=== PATIENT | male | born 1990 | race Caucasian/White ===

== ENCOUNTER 2022-11-14 05:18 | Emergency (ER) | payer BC ==
[2022-11-14 05:30] VITALS: RESP 18
[2022-11-14] MEDS ORDERED: ONDANSETRON 4 MG/2 ML VIAL IVP STA (06:17)
[2022-11-14] MEDS ORDERED: ORPHENADRINE 30 MG/ML 2 ML VIAL IVP STA (06:17)
[2022-11-14] MEDS ORDERED: KETOROLAC 15 MG/ML 1 ML VIAL IVP STA ×2 (06:17→08:18)
[2022-11-14] MEDS ORDERED: methylPREDNISolone SOD SUCCI 125 MG/2 ML VIAL IV STA (06:17)
[2022-11-14] MEDS ORDERED: HYDROmorphone 0.5 MG/0.5 ML SYRINGE IVP STA ×2 (06:17→08:18)
--- NOTE | 2022-11-14 07:44 | ED ---
Back Pain HPI - General Chief Complaint: Back Pain/Injury Stated Complaint: left hip and leg pain Time Seen by Provider: 11/14/22 05:42 Source: patient, family, RN notes reviewed Limitations: no limitations - History of Present Illness Initial Comments: 31-year-old male presents emergency Department chief complaint of low back pain, right leg pain. Patient states he had some problems last year similar to this had no imaging. CT of pain down his left leg at that time. Denies any bowel, bladder incontinence or retention. He states that he has no pain at rest pain with movement. Denies any weakness of his lower extremity he has no abdominal pain no dysuria no fevers. - Related Data Previous Rx's Medication Instructions Recorded Cyclobenzaprine [Flexeril] 10 mg PO TID PRN #15 tab 11/14/22 HYDROcodone/APAP 5-325MG [[place] 5] 1 each PO Q6HR PRN #12 tab 11/14/22 Ibuprofen [Motrin] 600 mg PO Q8HR PRN #30 tab 11/14/22 predniSONE 50 mg PO DAILY #5 tab 11/14/22 Allergies Allergy/AdvReac Type Severity Reaction Status Date / Time No Known Allergies Allergy Verified 11/14/22 05:30 Review of Systems ROS Statement: Those systems with pertinent positive or pertinent negative responses have been documented in the HPI. ROS Other: All systems not noted in ROS Statement are negative. Past Medical History Past Medical History: No Reported History History of Any Multi-Drug Resistant Organisms: None Reported Past Surgical History: No Surgical Hx Reported Past Psychological History: No Psychological Hx Reported Smoking Status: Vaper Past Alcohol Use History: Occasional Past Drug Use History: None Reported General Exam Limitations: no limitations General appearance: alert, in no apparent distress Head exam: Present: atraumatic, normocephalic, normal inspection Eye exam: Present: normal appearance, PERRL, EOMI. Absent: scleral icterus, conjunctival injection, periorbital swelling ENT exam: Present: normal exam, normal oropharynx, mucous membranes moist Neck exam: Present: normal inspection, full ROM. Absent: tenderness, meningismus, lymphadenopathy Respiratory exam: Present: normal lung sounds bilaterally. Absent: respiratory distress, wheezes, rales, rhonchi, stridor Cardiovascular Exam: Present: regular rate, normal rhythm, normal heart sounds. Absent: systolic murmur, diastolic murmur, rubs, gallop, clicks GI/Abdominal exam: Present: soft, normal bowel sounds. Absent: distended, tenderness, guarding, rebound, rigid Back exam: Present: full ROM, tenderness, paraspinal tenderness. Absent: vertebral tenderness Neurological exam: Present: alert, oriented X3, reflexes normal. Absent: motor sensory deficit Skin exam: Present: warm, dry, intact, normal color. Absent: rash Course Vital Signs 11/14/22 11/14/22 11/14/22 05:27 07:53 09:10 Temperature 98.0 F Pulse Rate 89 76 63 Respiratory 18 18 18 Rate Blood Pressure 129/79 142/86 142/98 O2 Sat by Pulse 97 98 97 Oximetry 11/14/22 09:54 Temperature 98.1 F Pulse Rate 71 Respiratory 18 Rate Blood Pressure 137/76 O2 Sat by Pulse 98 Oximetry Medical Decision Making - Medical Decision Making Was pt. sent in by a medical professional or institution (, PA, SAS ANALYST, urgent care, hospital, or fdc...) When possible be specific @ -No Did you speak to anyone other than the patient for history (EMS, parent, family, police, friend...)? What history was obtained from this source @ -No Did you review nursing and triage notes (agree or disagree)? Why? @ -I reviewed and agree with nursing and triage notes Were old charts reviewed (outside hosp., previous admission, EMS record, old EKG, old radiological studies, urgent care reports/EKG's, fdc records)? Report findings @ -No old charts were reviewed Differential Diagnosis (chest pain, altered mental status, abdominal pain women, abdominal pain men, vaginal bleeding, weakness, fever, dyspnea, syncope, headache, dizziness, GI bleed, back pain, seizure, CVA, palpatations, mental health, musculoskeletal)? @ -nDifferential Back Pain: Strain, zoster, cauda equina syndrome, epidural abscess, vertebral osteomyelitis, discitis, fracture, subluxation, disc herniation, DJD, spinal stenosis, dissection, AAA, pancreatitis, peptic ulcer disease, pyelonephritis, kidney stone, this is not meant to be an all-inclusive list.licable EKG interpreted by me (3pts min.). @ -None X-rays interpreted by me (1pt min.). @ -X-ray lumbar spine shows degenerative changes L4-L5 CT interpreted by me (1pt min.). @ -None done U/S interpreted by me (1pt. min.). @ -None done What testing was considered but not performed or refused? (CT, X-rays, U/S, labs)? Why? @ -Consider MRI though patient has no red flag symptoms and will follow palpation for MRI What meds were considered but not given or refused? Why? @ -None Did you discuss the management of the patient with other professionals (professionals i.e. , PA, SAS ANALYST, lab, RT, psych nurse, social worker aide, workforce investment act career manager, teacher, chief operating officer, case briefer)? Give summary @ -No Was smoking cessation discussed for >3mins.? @ -No Was critical care preformed (if so, how long)? @ -No Were there social determinants of health that impacted care today? How? (Homelessness, low income, unemployed, alcoholism, drug addiction, transportation, low edu. Level, literacy, decrease access to med. care, care home, rehab)? @ -No Was there de-escalation of care discussed even if they declined (Discuss DNR or withdrawal of care, Hospice)? DNR status @ -No What co-morbidities impacted this encounter? (DM, HTN, Smoking, COPD, CAD, Cancer, CVA, ARF, Chemo, Hep., AIDS, mental health diagnosis, sleep apnea, morbid obesity)? @ -None Was patient admitted / discharged? Hospital course, mention meds given and route, prescriptions, significant lab abnormalities, going to OR and other pertinent info. @ -Discharged patient's x-ray shows degenerative changes L4-L5 concerning for disc bulging or discrimination patient follow-up outpatient with orthopedics for MRI he has no red flag symptoms. Patient's pain was improved after treatment. Undiagnosed new problem with uncertain prognosis? @ -No Drug Therapy requiring intensive monitoring for toxicity (Heparin, Nitro, Insulin, Cardizem)? @ -No Were any procedures done? @ -No Diagnosis/symptom? @ -Lumbar radiculopathy, degenerative disc disease Acute, or Chronic, or Acute on Chronic? @ -Acute Uncomplicated (without systemic symptoms) or Complicated (systemic symptoms)? @ -Uncomplicated Side effects of treatment? @ -No Exacerbation, Progression, or Severe Exacerbation? @ -No Poses a threat to life or bodily function? How? (Chest pain, [place], [place], pneumonia, PE, COPD, DKA, ARF, appy, cholecystitis, CVA, Diverticulitis, Homicidal, Suicidal, threat to staff... and all critical care pts) @ -No Disposition Clinical Impression: Lumbar radiculopathy, Degeneration of intervertebral disc Disposition: HOME SELF-CARE Condition: Stable Instructions (If sedation given, give patient instructions): Acute Low Back Pain (ED) Additional Instructions: Please return to the Emergency Department if symptoms worsen or any other concerns. Prescriptions: Cyclobenzaprine [Flexeril] 10 mg PO TID PRN #15 tab PRN Reason: Muscle Spasm Ibuprofen [Motrin] 600 mg PO Q8HR PRN #30 tab PRN Reason: Pain HYDROcodone/APAP 5-325MG [[place] 5] 1 each PO Q6HR PRN #12 tab PRN Reason: Pain predniSONE 50 mg PO DAILY #5 tab Is patient prescribed a controlled substance at d/c from ED?: Yes When asked, does pt state using other controlled substances?: No If prescribed controlled substance>3 days was MAPS reviewed?: Prescribed <3 Days If opioid is for acute pain is fill amount 7 days or less?: Yes If Rx opioid, was Start Talking consent form obtained?: Yes Referrals: None,Stated [REFERRING] - 1-2 days Dolores Garcia, [Doctor of Osteopathic Medicine] - 1-2 days
--- NOTE | 2022-11-14 08:45 | XR ---
EXAMINATION TYPE: XR lumbosacral spine min 4V DATE OF EXAM: 11/14/2022 COMPARISON: None HISTORY: Low back pain and sciatica TECHNIQUE: Lumbar spine is examined in 5 projections. FINDINGS: There are 5 lumbar-type vertebral bodies. Pedicles are intact. There is some posterior disc space narrowing L4-5. Remaining disc heights are preserved. Follow-up MRI can be performed as clinic ally indicated.. Vertebral body heights are preserved. Facets appear normal. IMPRESSION: 1. Mild posterior degenerative disc change L4-5.
[2022-11-14 09:56] VITALS: BP 137/76; PULSE 71; TEMP 98.1
== END 2022-11-14 09:54 | disposition home or self-care (01) ==
LOC: EC 05:18
DX: M51.36 Other intervertebral disc degeneration, lumbar region (principal); M54.16 Radiculopathy, lumbar region; F17.290 Nicotine dependence, other tobacco product, uncomplicated
CPT/HCPCS: 72110; 99283; 96374; 96375 ×4; 96376 ×2; J2360; J2930; J2405; J1885; J1170

== ENCOUNTER → 2023-09-27 | Outpatient (CLI) | payer BC ==
[2023-09-27 15:00] LABS: INR 0.9 (<1.2); Partial Thromboplastin Time 24.9 sec (22.0-30.0); Prothrombin Time 9.8 sec (10.0-12.5)
[2023-09-28 12:29] LABS: Protein S Antigen 108 % (50 - 140)
[2023-09-29 11:54] LABS: Protein C Antigen 154 % (72-160)
== END | disposition home or self-care (01) ==
LOC: LABWHC1 13:43
PROVIDERS: ATTEND Orthopaedic Surgery
DX: D68.59 Other primary thrombophilia (principal)
CPT/HCPCS: 36415; 81241; 85302; 85305; 85379; 85384; 85610; 85730

== ENCOUNTER → 2023-10-03 | Outpatient (CLI) | payer BC ==
--- NOTE | 2023-10-04 19:41 | MR ---
EXAMINATION TYPE: MR pelvis wo con DATE OF EXAM: 10/03/2023 9:59 PM CLINICAL INDICATION:Male, 32 years old with history of R10.2 PELVIC AND PERINEAL PAIN; PHH, Pelvic pa in, abnormal hip/pelvic x-rays COMPARISON: None TECHNIQUE: Triplane multisequence imaging was performed of the pelvis. IV Contrast: FINDINGS: Reproductive: Prostate: Unremarkable. Seminal vesicle's: Unremarkable. Testes: Unremarkable. Bladder: Unremarkable. Bowel: Unremarkable as visualized. Peritoneum: A small amount of free fluid in the pelvis. Lymph nodes: No evidence of adenopathy. Vasculature: Unremarkable. Musculoskeletal: There is abnormal bone marrow signal within the bilateral proximal femurs with defor mity to the femoral heads. Low T1/T2 signal is present. Bony edema throughout the proximal femurs. Th ere is bilateral joint effusions. Early degeneration changes of the acetabulum bilaterally. Degenerat adalid changes of the labrum bilaterally. Right proximal femur and 19 mm lesion which is high T2/T1 low signal with multiple septations. There is a short zone of transition no evidence for cortical breakth rough or soft tissue component. Abdominal wall/soft tissues: Unremarkable. IMPRESSION: 1. 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 Fi cat and Ivette classification stage IV 2. Early degeneration changes of the labrum bilaterally the acetabulum bilaterally secondary to #1. 3. Proximal right femur 17 mm intramedullary lesion suspected to represent an enchondroma or other b enign process.
== END | disposition home or self-care (01) ==
LOC: RADMRIMAIN 21:15
PROVIDERS: ATTEND Orthopaedic Surgery
DX: R10.2 Pelvic and perineal pain (principal)
CPT/HCPCS: 72195

== ENCOUNTER → 2023-10-04 | Outpatient (CLI) | payer BC | END | disposition home or self-care (01) | LOC: LABWHC1 16:01 | PROVIDERS: ATTEND Orthopaedic Surgery | DX: D68.59 Other primary thrombophilia (principal) | CPT/HCPCS: 36415; 81241 ==

== ENCOUNTER → 2023-10-24 | Outpatient (CLI) | payer BC ==
[2023-10-24 19:03] LABS: Basophils # (A) 0.03 X 10*3/uL (0.00-0.10); Basophils % (A) 0.7 %; Eosinophils # (A) 0.07 X 10*3/uL (0.04-0.35); Eosinophils % (A) 1.6 %; HCT 46.7 % (39.6-50.0); HGB 15.9 g/dL (13.0-17.0); Lymphocytes # (A) 1.55 X 10*3/uL (0.90-5.00); Lymphocytes % (A) 34.4 %; MCH 31.6 pg (27.0-32.0); MCV 92.8 FL (80.0-97.0); Mean Platelet Volume 9.6 FL (9.5-12.2); Monocytes # (A) 0.48 X 10*3/uL (0.20-1.00); Monocytes % (A) 10.6 %; NRBC Per 100 WBC 0 X 10*3/uL (0.00-0.01); Neutrophils # (A) 2.36 X 10*3/uL (1.80-7.70); Neutrophils % (A) 52.3 %; Platelet Count 270 X 10*3/uL (140-440); RBC 5.03 X 10*6/uL (4.40-5.60); RDW 11.9 % (11.5-14.5); WBC 4.51 X 10*3/uL (4.50-10.00)
== END | disposition home or self-care (01) ==
LOC: LABPAT 15:35
PROVIDERS: ATTEND Orthopaedic Surgery
DX: Z01.812 Encounter for preprocedural laboratory examination (principal); Z22.322 Carrier or suspected carrier of Methicillin resistant Staphylococcus aureus; M87.051 Idiopathic aseptic necrosis of right femur
CPT/HCPCS: 85025; 86850; 86900; 86901; 87070

== ENCOUNTER 2023-10-27 07:58 | Day surgery (SDC) | payer BC ==
--- NOTE | 2023-10-26 08:50 | P.HPOR ---
History of Present Illness H&P Date: 10/26/23 Chief Complaint: Right hip pain The patient is a 32-year-old male who presents with progressive right hip pain for the past 6 months. He's having pain with any weightbearing activities. He tried medications and activity modifications without much relief. Review of Systems Negative except as in HPI Past Medical History Past Medical History: No Reported History Additional Past Medical History / Comment(s): 3 herniated discs lower back - had 2 cortisone injections lower right back, had right hip pain 2 days after injections, possible hypercoagulable state History of Any Multi-Drug Resistant Organisms: None Reported Past Surgical History: No Surgical Hx Reported Additional Past Surgical History / Comment(s): BMT, undescended testicle as infant, wisdom teeth extraction Past Anesthesia/Blood Transfusion Reactions: No Reported Reaction Smoking Status: Former smoker - Past Family History Father Additional Family Medical History / Comment(s): blood clotting issue due to a medication he was on Mother Additional Family Medical History / Comment(s): viral damage to brain - no residual damage Medications and Allergies Home Medications Medication Instructions Recorded Confirmed Type HYDROcodone/APAP 5-325MG [[place] 5] 1 each PO Q6HR PRN #12 tab 11/14/22 10/24/23 Rx Pregabalin [Lyrica] 150 mg PO BID 10/24/23 10/24/23 History Allergies Allergy/AdvReac Type Severity Reaction Status Date / Time No Known Allergies Allergy Verified 10/24/23 12:05 Physical Examination - Hip right Gait: antalgic Tenderness with palpation: anterior Pain with motion: internal rotation and hip flexion ROM: flexion: 60 degrees ROM: external rotation: 50 degrees Crepitus with motion: Yes Strength: extension: 5/5 Strength: flexion: 5/5 Strength: abduction: 5/5 Tests: impingement tests: positive Results The patient is a well-developed well-nourished male approximately 6 foot 3, 190 pounds of mesomorphic habitus. HEENT exam is nonfocal, neck is supple. He has painful passive motion of the right hip with flexion 60, external rotation 50, internal rotation -15 with pain. He has an antalgic gait pattern. His distal neurovascular appears intact in the right lower extremity. - Diagnostic results Hip x-ray: image reviewed (X-rays of the right hip obtained in the office show joint space narrowing along with collapse of the femoral head and a positive crescent sign.) Assessment and Plan Assessment: Right hip avascular necrosisstage IV Possible hypercoagulable state Plan: I talked the patient at length regarding his condition and treatment options. At this point he is quite symptomatic and has progression of his disease process. After a thorough discussion he opts to proceed with surgery. We will plan to proceed with right total hip arthroplasty utilizing an anterior approach. Risks and benefits were discussed at length in layman's terms. We will institute DVT prophylaxis postoperatively.
[~2023-10-27 07:58] MED LIST: TRANEXAMIC 1,000 MG/100ML-NACL 1,000 MG in SALINE 1 100ML.BAG IVPB PRN
[2023-10-27] MEDS ORDERED: LIDOCAINE 1% (10MG/ML) FOR IV START INTRADERMA PRN (08:05)
[2023-10-27] MEDS: LACTATED RINGERS 1,000 ML IV SCH (08:31)
[2023-10-27] MEDS: ACETAMINOPHEN TAB 500 MG TAB PO PRN (08:45)
[2023-10-27] MEDS: MELOXICAM 7.5 MG TAB PO PRN (08:45)
[2023-10-27] MEDS: DEXAMETHASONE SOD PHOSPHATE 4 MG/ML 1 ML VIAL IV ONE (08:50)
[2023-10-27] MEDS: ONDANSETRON 4 MG/2 ML VIAL IVP ONE (08:50)
[2023-10-27] MEDS: MIDAZOLAM 2 MG/2 ML VIAL IV PRN (08:53)
--- NOTE | 2023-10-27 09:13 | P.ANPRN ---
Procedure Note - Anesthesia - Nerve Block Performed Right Alvin Single Time Out Performed: Yes Date of Procedure: 10/27/23 Procedure Start Time: 08:56 Procedure Stop Time: 09:00 Location of Patient: PreOp Indication: Acute Post-Operative Pain, Analgesia, Requested by Surgeon Sedation Type: Sedate with meaningful contact maintained Preparation: Sterile Prep, Sterile Dressing Position: Supine Catheter: None Needle Types: Pajunk Needle Gauge: 21 Ultrasound used to visualize needle placement: Yes Ultrasound used to observe medication spread: Yes Injectate: 0.5% Ropivacaine (see comment for volume) (Ropiv 20ml+decadron 4mg) Blood Aspirated: No Pain Paresthesia on Injection Noted: No Resistance on Injection: Normal Image Stored and Saved: Yes Events: Uneventful and Well Tolerated
[2023-10-27] MEDS ORDERED: ROCURONIUM 10 MG/ML (5 ML VIAL) IV ONE (09:48)
[2023-10-27] MEDS ORDERED: MIDAZOLAM 2 MG/2 ML VIAL ONE (09:48)
[2023-10-27] MEDS ORDERED: NEOSTIGMINE 1 MG/ML 10 ML VIAL ONE (09:48)
[2023-10-27] MEDS ORDERED: TRANEXAMIC 1,000 MG/100ML-NACL PREMIX BAG ONE (09:48)
[2023-10-27] MEDS ORDERED: KETOROLAC 15 MG/ML 1 ML VIAL ONE (09:48)
[2023-10-27] MEDS ORDERED: PROPOFOL 10 MG/ML 20 ML VIAL IV ONE (09:48)
[2023-10-27] MEDS ORDERED: KETAMINE HCL IN 0.9 % NACL 50 MG/5 ML SYRINGE ONE (09:48)
[2023-10-27] MEDS ORDERED: fentaNYL (PF) 50 MCG/ML 2 ML AMP ONE (09:48)
[2023-10-27] MEDS ORDERED: ROPIVACAINE 5 MG/ML 30 ML VIAL ONE (09:48)
[2023-10-27] MEDS ORDERED: SUCCINYLCHOLINE CHLORIDE 200 MG/10 ML VIAL IV ONE (09:48)
[2023-10-27] MEDS ORDERED: GLYCOPYRROLATE 0.2 MG/ML 2 ML VIAL ONE (09:48)
[2023-10-27] MEDS ORDERED: HYDROmorphone (PF) 1 MG/ML ONE (09:48)
[2023-10-27] MEDS ORDERED: DEXAMETHASONE SOD PHOSPHATE 4 MG/ML 1 ML VIAL ONE (09:48)
[2023-10-27] MEDS ORDERED: WATER FOR INJECTION, STERILE 10 ML VIAL IV ONE (09:48)
[2023-10-27] MEDS ORDERED: LIDOCAINE 1% INJ 10MG/ML (20 ML MDV) ONE (09:48)
[2023-10-27] MEDS ORDERED: PHENYLEPHRINE-0.9% NACL SYG 1,000 MCG/10 ML SYRINGE ONE (09:48)
[2023-10-27] MEDS: ceFAZolin 1,000 MG in SODIUM CHLORIDE 0.9% 1,000 ML IRRIGATION ONE (10:31)
[2023-10-27] MEDS: LACTATED RINGERS 1,000 ML IV ONE (11:08)
[2023-10-27] MEDS ORDERED: NALOXONE 0.4 MG/ML 1 ML VIAL IV PRN (11:50)
[2023-10-27] MEDS ORDERED: HYDROcodone/APAP 5-325MG 1 EACH TAB PO PRN (11:50)
[2023-10-27] MEDS ORDERED: HYDROmorphone 0.5 MG/0.5 ML SYRINGE IVP PRN (11:50)
[2023-10-27] MEDS ORDERED: hydrOXYzine pamoate 25 MG CAP PO PRN (11:50)
[2023-10-27] MEDS ORDERED: MAGNESIUM HYDROXIDE 2,400 MG/30 ML CUP PO PRN (11:50)
--- NOTE | 2023-10-27 11:58 | P.OP ---
Date of Procedure: 10/27/23 Preoperative Diagnosis: Avascular necrosis right hipstage IV Postoperative Diagnosis: Same Procedure(s) Performed: Right total hip arthroplastypress-fitanterior approach Implants: Depuy Corail size 14-135 degreehigh offset collared femoral stem, 36+1.5 ceramic femoral head, 62 mm [place] acetabular shell with neutral polyethylene liner. Anesthesia: CARLOSA Surgeon: Jose Silva Pickle Solution Maker #1: Kyle Harrison Estimated Blood Loss (ml): 150 Pathology: none sent Condition: stable Disposition: PACU Indications for Procedure: The patient is a 32-year-old male who presents with progressive right hip pain secondary to avascular necrosis. He was noted to have end-stage disease with collapse of the femoral head. A discussion of the risks and benefits of operative intervention was made with the patient. He opted to proceed with surgery. Operative risks include infection, neurovascular injury, development of blood clots, fracture, leg length discrepancy, instability, possible component loosening/failure and possible need for subsequent procedures was discussed. Informed consent was obtained. Operative Findings: As below Description of Procedure: The patient was brought to the operating room, and after induction of spinal anesthesia was placed supine on the Alesha table. Positioning was checked with fluoroscopy. The right hip was then prepped and draped in a normal fashion. A 12 cm incision was then made starting 2 fingerbreadths distal and 3 finger breaths posterior to the ASIS in line with the proximal femur. The skin was incised sharply. Subcutaneous tissues were divided sharply. Electrocautery was used for hemostasis. The fascia was split in line with skin incision. The interval between the sartorius and tensor fascia vasyl was then bluntly devel oped. The posterior fascia was opened with electrocautery. The lateral circumflex vessels were identified and cauterized prior to sectioning. A retractor was placed along the superior femoral neck as well as the anterior acetabular rim. A wide capsulotomy was performed. The neck cut was then made at a 45 angle to the shaft approximately 1 1/2 cm above the level of the lesser trochanter. The head was extracted. Attention was then paid towards preparing the acetabular. Anterior and posterior retractors were placed. The remaining capsular labral tissue sharply debrided clearly defining the acetabular margins. I began reaming with a 57 mm reamer taking care to initially medialize then reaming at 45 of abduction and 20 of anteversion. Sequential reaming is performed up to 61 mm. A trial 62 mm acetabular shell was inserted in the same orientation and was fully seated. There was good rim fit and stability. Positioning was checked with fluoroscopy. The final 62 mm acetabular shell was inserted again at 45 of abduction and 20 of anteversion. This was fully seated. There was good rim fit and stability. Again fluoroscopy was used to check the adequacy of placement. A neutral polyethylene liner was gently impacted. Care was taken to avoid any soft tissue interposition. Pulsatile lavage was utilized. Attention was then paid towards preparing the proximal femur. The central region was cleared of soft tissue. A canal finder was used to find the femoral canal. Sequential broaching was performed up to size 14 taking care to lateralize proximally. A calcar mill was used to fashion the medial calcar. There was good rotational stability. A 135 degree high offset neck along with a 36 mm +1.5 head was placed. The hip was gently reduced. Fluoroscopy was used to check the adequacy of positioning along with leg lengths. I felt both were good. The hip was gently dislocated. The trial components were removed. The final size 14 collared 135 degree high offset press-fit femoral stem was inserted parallel to the posterior cortex. This was fully seated and there was good rotational stability. A 36 mm +1.5 head was placed. This was gently impacted. The hip was then gently reduced. Final fluoroscopic view showed adequate placement implant along with latter day of leg length. Stability was checked with 80 of external rotation and 60 of extension of the right hip. The wound was irrigated with sterile lavage. The fascia was closed with running 0 Vicryl suture. There was minimal drainage therefore a deep drain was not placed. The second dose of IV TXA was given. The subcutaneous tissues were reapproximated interrupted 2-0 Vicryl sutures. The skin was reapproximated with 3-0 subcuticular strata fix suture. Skin tape and adhesive was applied. A sterile dressing was applied. The patient was then awoken from sedation and transferred to recovery room in good condition. Blood loss was estimated at 150 mL. No complications were incurred. Sponge and needle counts were correct at the end of the case. Kyle THOMPSON assisted during the major components is case to include exposure, bone resection, implantation, and closure.
[2023-10-27] MEDS: HYDROmorphone 0.5 MG/0.5 ML SYRINGE IVP PRN (12:08)
--- NOTE | 2023-10-27 12:52 | XR ---
EXAMINATION TYPE: XR Hip Limited RT DATE OF EXAM: 10/27/2023 CLINICAL HISTORY: Postoperative evaluation TECHNIQUE: Single portable view of the right hip was submitted. FINDINGS: Noted are changes of total hip arthroplasty with femoral and acetabular components appearin g well seated. Alignment is anatomic. Postsurgical soft tissue changes are evident. IMPRESSION: Satisfactory postoperative alignment
[2023-10-27] MEDS: HYDROmorphone 1 MG/ML 1 ML SYRINGE IVP PRN (14:08)
[2023-10-27] MEDS: HYDROcodone/APAP 7.5-325MG 1 EACH TAB PO PRN (15:18)
--- NOTE | 2023-10-27 15:42 | P.CONS ---
History of Present Illness - Reason for Consult Consult date: 10/27/23 Medical Management Requesting physician: Jose Silva - History of Present Illness History of Presenting Illness: Patient is a pleasant 32-year-old male with history of 3 herniated lumbar disc status post cortisone injections, frequent alcohol use/abuse, previous nicotine dependence, occasional marijuana use, and recently diagnosed with avascular necrosis. He is currently admitted under orthopedic surgery team and is status post right total hip arthroplasty secondary to his stage IV avascular necrosis. We were consulted for medical management throughout admission. Patient seen and fully evaluated at bedside in room 454. He is currently status post right total hip arthroplasty. He reports moderate pain at this time. He denies experiencing any numbness or tingling. Movement and sensation intact. Patient tolerating oral intake and denies having any postoperative nausea or vomiting. He has not yet urinated since completion of surgical procedure. Patient denies any other complaints including headache, lightheadedness, dizziness, chest pain, palpitations, or shortness of breath. He reports previous nicotine dependence, occasional marijuana use, and moderate alcohol use 3 to 4 days/week. Review of systems: Pertinent positives and negatives as discussed in HPI, a complete review of systems was performed and all other systems are negative. Physical exam: Vital signs reviewed and stable. General: Nontoxic, no distress and appears stated age. Derm: Skin warm and dry, normal coloration for ethnicity. Head: Atraumatic, normocephalic and symmetric. Eyes: EOMs intact, no lid lag, and anicteric sclera Mouth: no lip lesions, mucus membranes moist Cardiovascular: regular rate and rhythm with normal S1S2, no murmur, positive posterior tibial pulses bilaterally, and cap refill < 2 seconds. Lungs: Respirations even, regular, and unlabored on room air. Lungs CTA bilaterally, no rhonchi, no rales, no wheezing, and no accessory muscle usage. Abdominal: soft, nontender to palpation, no guarding, no appreciable organom egaly Ext: Movement and sensation intact. Postoperative dressing right lateral hip. No gross muscle atrophy, no edema, no contractures Neuro: Speech clear, face symmetrical and CN II-XII grossly intact with no noted focal neuro deficits Psych: Alert and oriented to person, place, time, and situation. Appropriate and pleasant affect. Assessment and Plan of Care: Avascular necrosis -Unclear etiology possibly secondary to previous cortisone injections in lumbar spine vs lifestyle choices with previous nicotine dependence and frequent alcohol use (3-4 days per week drinking moderately). -Patient reports full cessation of nicotine use reporting quitting smoking cigarettes in 2018 and vaping 09/2023. Recommend continued cessation of nicotine use. -Recommend full cessation or decreasing alcohol use. Patient reports last alcoholic drink being 3 days prior to surgery. -Will obtain morning labs including CBC, CMP, coagulation profile, lipid profile, and hemoglobin A1c. History of frequent alcohol use/abuse -Order placed for monitoring of CIWA scores and patient to be medicated with Ativan 0.5 mg every 4 hours as needed for CIWA score of 4-5, Ativan 1 mg every 4 hours for CIWA score of 6-7, Ativan 2 mg every 3 hours CIWA score of 8-9, and Ativan 2 mg every 2 hours forr CIWA score of 10 or greater. -Thiamine 100 mg daily, Multivitamin daily, and folate 1 mg daily -Seizure and fall precautions in place. -Urine drug screen -Continued close monitoring of electrolytes and replace as needed. Status post right total hip arthroplasty resulting from stage IV avascular necrosis -Management per primary admitting orthopedic surgery team Vital signs reviewed: Blood pressure 130/85, heart rate 107, respiratory rate 16, temp 97.8 F and SpO2 of 98% on room air. Thank you for allowing us to participate in the care of this pleasant patient. Do not hesitate to contact us with questions. Someone can be reached from the [facility] group all hours of the day at [phone] or via [employer] serve. Patient was seen independently by Nurse Practitioner. This document was prepared using [employer] dictation software. Please allow for errors in financial retirement plan specialist while rare they do occur. Horacio Centeno NP rendered care for this patient independently, reviewed the findings and plan as documented in the note above. I did not physically speak with or examine the patient on this date. Past Medical History Past Medical History: No Reported History Additional Past Medical History / Comment(s): 3 herniated discs lower back - had 2 cortisone injections lower right back, had right hip pain 2 days after injections, possible hypercoagulable state History of Any Multi-Drug Resistant Organisms: None Reported Past Surgical History: No Surgical Hx Reported Additional Past Surgical History / Comment(s): BMT, undescended testicle as , wisdom teeth extraction Past Anesthesia/Blood Transfusion Reactions: No Reported Reaction Past Psychological History: No Psychological Hx Reported Smoking Status: Former smoker Past Alcohol Use History: Occasional Additional Past Alcohol Use History / Comment(s): quit smoking cigarettes 2017, smoked less than 1 ppd x 6 yrs, vaped x 4 yrs - quit vaping 09/2023 Past Drug Use History: None Reported Additional Drug Use History / Comment(s): vapes marijuana occasionally - Past Family History Father Additional Family Medical History / Comment(s): blood clotting issue due to a medication he was on Mother Additional Family Medical History / Comment(s): viral damage to brain - no residual damage Medications and Allergies Home Medications Medication Instructions Recorded Confirmed Type HYDROcodone/APAP 5-325MG [[place] 5] 1 each PO Q6HR PRN #12 tab 11/14/22 10/27/23 Rx Pregabalin [Lyrica] 150 mg PO BID 10/24/23 10/27/23 History Apixaban [Eliquis] 2.5 mg PO BID #60 tab 10/28/23 Rx HYDROcodone/APAP 7.5-325MG [[place] 1 - 2 tab PO Q6HR PRN #32 tab 10/28/23 Rx 7.5-325] Sennosides/Docusate Sodium [Senna 1 each PO DAILY #20 capsule 10/28/23 Rx Plus 8.6-50 mg Softgel] Allergies Allergy/AdvReac Type Severity Reaction Status Date / Time No Known Allergies Allergy Verified 10/27/23 08:29 Physical Exam Vitals: Vital Signs Temp Pulse Pulse Resp BP Pulse Ox 10/27/23 13:45 97.8 F 91 18 136/91 98 10/27/23 13:15 76 16 140/81 98 10/27/23 13:00 70 16 146/86 99 10/27/23 12:40 84 16 150/91 99 10/27/23 12:25 74 16 147/87 100 10/27/23 12:10 87 16 142/80 99 10/27/23 11:55 97.2 F L 91 16 149/94 100 10/27/23 09:07 78 16 126/79 99 10/27/23 08:40 97.3 F L 88 144/81 94 L Intake and Output 10/27/23 10/27/23 10/27/23 06:59 14:59 22:59 Intake Total 1901 Output Total 150 Balance 1751 Intake: IV 1901 Output: Estimated Blood Loss 150 Other: Weight 86.1 kg Results CBC & Chem 7: 10/28/23 05:40 10/28/23 05:40
[2023-10-27] MEDS ORDERED: LORazepam 0.5 MG TAB PO PRN (16:15)
[2023-10-27] MEDS ORDERED: LORazepam 1 MG TAB PO PRN ×4 (16:15)
--- NOTE | 2023-10-27 19:29 | XR ---
EXAMINATION TYPE: XR Hip Limited RT, FL guidance operating room DATE OF EXAM: 10/27/2023 Comparison: None Clinical History: 32-year-old male RIGHT ANTERIOR HIP Findings: Right total anterior hip 26 sec fl .9256 Gycm2 DAP 7 images provided. Impression: Intraoperative fluoroscopy as above.
[2023-10-27] MEDS: SENNOSIDES-DOCUSATE SODIUM 1 EACH TAB PO SCH (21:31)
[2023-10-27] MEDS: PREGABALIN 75 MG CAP PO SCH (21:31)
[2023-10-28 06:38] LABS: INR 0.9 (<1.2); Partial Thromboplastin Time 23.7 sec (22.0-30.0); Prothrombin Time 10.3 sec (10.0-12.5)
[2023-10-28 07:42] VITALS: RESP 18
[2023-10-28 09:16] LABS: Basophils # (A) 0.01 X 10*3/uL (0.00-0.10); Basophils % (A) 0.1 %; Eosinophils # (A) 0.01 X 10*3/uL (0.04-0.35); Eosinophils % (A) 0.1 %; HGB 12.3 g/dL (13.0-17.0); Lymphocytes # (A) 1.54 X 10*3/uL (0.90-5.00); Lymphocytes % (A) 22.5 %; MCH 32.1 pg (27.0-32.0); MCHC 34.2 g/dL (32.0-37.0); Mean Platelet Volume 9.9 FL (9.5-12.2); Monocytes # (A) 0.78 X 10*3/uL (0.20-1.00); Monocytes % (A) 11.4 %; NRBC Per 100 WBC 0 X 10*3/uL (0.00-0.01); Neutrophils # (A) 4.47 X 10*3/uL (1.80-7.70); Neutrophils % (A) 65.6 %; Platelet Count 215 X 10*3/uL (140-440); RBC 3.83 X 10*6/uL (4.40-5.60); RDW 11.9 % (11.5-14.5); WBC 6.83 X 10*3/uL (4.50-10.00)
[2023-10-28] MEDS: MULTIVITAMINS, THERA 1 EACH TAB PO SCH (09:33)
[2023-10-28] MEDS: RIVAROXABAN 10 MG TAB PO SCH (09:33)
[2023-10-28] MEDS: FOLIC ACID 1 MG TAB PO SCH (09:33)
[2023-10-28] MEDS: THIAMINE 100 MG TAB PO SCH (09:33)
[2023-10-28 09:47] LABS: ALT 25 U/L (10-49); AST 21 U/L (14-35); Albumin 3.7 g/dL (3.8-4.9); Albumin/Globulin Ratio 2.06 Ratio (1.60-3.17); Alkaline Phosphatase 67 U/L (41-126); BUN/Creat Ratio 9.14 Ratio (12.00-20.00); Blood Urea Nitrogen 6.4 mg/dL (9.0-27.0); Calcium 8.6 mg/dL (8.7-10.3); Carbon Dioxide 24.1 mmol/L (21.6-31.8); Chloride 105 mmol/L (96-109); Chol/HDL Ratio 3.53 Ratio; Globulin 1.8 g/dL (1.6-3.3); Glucose 101 mg/dL (70-110); LDL Cholesterol,Calculated 81.7 mg/dL (0.0-131.0); Potassium 4.2 mmol/L (3.5-5.5); Sodium 139 mmol/L (135-145); Total Bilirubin 0.6 mg/dL (0.3-1.2); Total Protein 5.5 g/dL (6.2-8.2); VLDL Calculation 18.64 mg/dL (5.00-40.00)
--- NOTE | 2023-10-28 11:15 | P.DS ---
Providers Date of admission: 10/27/2023 Expected date of discharge: 10/28/23 Attending physician: Jose Silva Consults: 10/27/23 11:50 Consult Physician Routine Consulting Provider: Cosme Thompson Consult Reason/Comments: hypercoagulable state Do you want consulting provider notified?: Yes 10/27/23 11:55 Consult Physician Routine Consulting Provider: Yanet Blanca Consult Reason/Comments: Medical Management s/p direct anterior right total hip arthroplasty Do you want consulting provider notified?: Yes Primary care physician: Stated None Hospital Course: Date of admission: 10/27/2023 Date of discharge: 10/28/2023 Admission diagnosis: Right hip avascular necrosis Discharge diagnosis: Same Attending physician: Dr. Silva Surgical procedures: Direct anterior right total hip arthroplasty Brief history: Patient is a 32-year-old male with a history of right hip avascular necrosis. At this point patient has failed conservative treatment measures and has opted to proceed with a elective direct anterior right total hip arthroplasty. Hospital course: Details of patient's surgery can be found in operative report. Patient tolerated the procedure well and was subsequently transported to orthopedic floor. Patient's orthopeidc and medical care was provided daily. Patient had daily laboratory tests performed for evaluation of overall blood counts. Patient had daily physical therapy to include strengthening range of motion as well as education with walker ambulation. Patient was treated with Xarelto for their postoperative DVT prophylaxis during their inpatient stay. Patient was noted to have a relatively uneventful postoperative course. Patient reported satisfactory pain control with oral pain medications by postoperative day 1. Patient showed satisfactory progress with physical therapy. Patient moved steadily through the program and had no difficulty meeting the goals by postoperative day 1. Given patient's otherwise satisfactory course and having met physical therapy goals, plan is to discharge patient home with health services on postoperative day 1. Discharge condition/disposition: Patient will be discharged home with health services in stable condition. Discharge medications: Instructions are given on resumption of patient's normal daily medications per primary care recommendation, in addition patient will be prescribed Addison; senna; Eliquis 2.5 mg twice daily x 30 days. Discharge instructions: 1. Wound care and infection precautions, keep incision dry and covered while showering, no lotions, creams, moisturizers. No soaking, tubs, pools, hottubs. Do not scrub over the incision. 2. Weight-bear as tolerated with walker / cane until follow-up. 3. Ice and elevate when necessary. Do not exceed 20 minutes per hour with ice pack. 4. Utilize compression sleeve until seen at first follow up appointment. 5. Visiting nursing care. 6. Home physical therapy. 7. Pain meds and anticoagulants per prescription. 8. Pain medication has potential to cause constipation. Increase oral fluid and fiber intake. Contact primary care provider if you have not had a bowel movement within 48 hours after discharge 9. No anti-inflammatory medication until discussed at first post operative visit, this including Motrin, Aleve, Mobic, Diclofenac. 10. Follow up in office at 2 weeks postop with Nicola Ortiz PA-C / Kyle Harrison PA-C 11. Follow up with your primary care doctor 7-10 days after discharge. 12. Contact [facility] with any questions, . Assessment: Right hip avascular necrosis Procedures: Direct anterior right total hip arthroplasty Patient Condition at Discharge: Good Plan - Discharge Summary Discharge Rx Participant: Yes New Discharge Prescriptions: New Apixaban [Eliquis] 2.5 mg PO BID #60 tab HYDROcodone/APAP 7.5-325MG [Addison 7.5-325] 1 - 2 tab PO Q6HR PRN #32 tab PRN Reason: Pain Sennosides/Docusate Sodium [Senna Plus 8.6-50 mg Softgel] 1 each PO DAILY #20 capsule No Action Pregabalin [Lyrica] 150 mg PO BID HYDROcodone/APAP 5-325MG [[place]ison 5] 1 each PO Q6HR PRN #12 tab PRN Reason: Pain Discharge Medication List HYDROcodone/APAP 5-325MG [[place]ison 5] 1 each PO Q6HR PRN #12 tab 11/14/22 [Rx] Pregabalin [Lyrica] 150 mg PO BID 10/24/23 [History] Apixaban [Eliquis] 2.5 mg PO BID #60 tab 10/28/23 [Rx] HYDROcodone/APAP 7.5-325MG [Addison 7.5-325] 1 - 2 tab PO Q6HR PRN #32 tab 10/28/23 [Rx] Sennosides/Docusate Sodium [Senna Plus 8.6-50 mg Softgel] 1 each PO DAILY #20 capsule 10/28/23 [Rx] Follow up Appointment(s)/Referral(s): Kyle Harrison PAC [PHYSICIAN SUPERVISOR BORDER DEPARTMENT] - 2 Weeks Erin Morse MD [REFERRING] - 1-2 Days (need to establish care with PCP) [facility], [NON-STAFF] - 1-2 Days ([facility] will call you to schedule your in home nursing and physical therapy visits. ) Patient Instructions/Handouts: Anterior Hip Replacement (DC), Anterior Hip Replacement (GEN) Activity/Diet/Wound Care/Special Instructions: Orthopedic Discharge Instructions: 1. Wound care and infection precautions, keep incision dry and covered while showering, no lotions, creams, moisturizers. No soaking, pools, hot tubs. Do not scrub over incision. 2. Weight-bear as tolerated with walker / cane until follow-up. 3. Ice and elevate when necessary. Do not exceed 20 minutes per hour with ice pack. 4. Utilize compression sleeve until seen at first follow up appointment. 5. Pain meds and anticoagulants per prescription. 6. Pain medication has potential to cause constipation. Increase oral fluid and fiber intake. Contact primary care provider if you have not had a bowel movement within 48 hours after discharge. 7. No anti-inflammatory medication until discussed at first post operative visi t, this including Motrin, Aleve, Mobic, Diclofenac, aspirin. 8. Follow up in office at 2 weeks postop with Nicola Ortiz PA-C / Kyle Harrison PA-C 9. Follow up with your primary care doctor 7-10 days after discharge. 10. Contact [facility] with any questions, . Keep incision clean, dry, intact. While showering, cover fusion tape with Saran wrap. Keep fusion tape on until follow-up appointment in office in 2 weeks Discharge Disposition: HOME WITH HOME HEALTH SERVICES
--- NOTE | 2023-10-28 11:17 | P.PN ---
Subjective Progress Note Date: 10/28/23 Principal diagnosis: Right hip avascular necrosis Patient was seen at bedside this morning sitting up in chair with dressing present over right anterior hip. Patient says she did well with therapy this morning walked down the [place] and up and down steps. Patient says he is looking forward to going home today. Patient says he has urinated several times without issue. Patient says he has having some pain to the right hip however pain medication does control most of it. Patient denies chest pain, fever, shortness of breath, nausea, vomiting, change in vision, loss of bowel/bladder control. Objective - Vital Signs Vital signs: Vital Signs Temp 98.6 F 10/28/23 07:38 Pulse 71 10/28/23 07:38 Resp 18 10/28/23 07:38 BP 118/64 10/28/23 07:38 Pulse Ox 99 10/28/23 07:38 FiO2 Intake & Output 10/27/23 10/28/23 10/28/23 18:59 06:59 18:59 Intake Total 1901 960 Output Total 250 500 Balance 1651 460 Weight 86.1 kg Intake: IV 1901 Oral 960 Output: Urine 100 500 Estimated Blood Loss 150 Other: Voiding Method Toilet Urinal # Voids 3 - Exam Right hip: Incision is clean, dry, and intact. The exofin fusion tape is in good condition. There is minimal soft tissue swelling and ecchymosis surrounding the medial and lateral aspects of the incision. Calf is soft, no tenderness with palpation. Plantar flexion, dorsiflexion, EHL, FHL are intact. Sensory exam to light touch throughout the extremity is intact, dorsal pedis pulses 2+. - Labs CBC & Chem 7: 10/28/23 05:40 10/28/23 05:40 Labs: Abnormal Lab Results - Last 24 Hours (Table) 10/28/23 10/28/23 Range/Units 05:40 05:40 RBC 3.83 L (4.40-5.60) X 10*6/uL Hgb 12.3 L (13.0-17.0) g/dL Hct 36.0 L (39.6-50.0) % MCH 32.1 H (27.0-32.0) pg Eosinophils # 0.01 L (0.04-0.35) X 10*3/uL BUN 6.4 L (9.0-27.0) mg/dL BUN/Creatinine Ratio 9.14 L (12.00-20.00) Ratio Calcium 8.6 L (8.7-10.3) mg/dL Total Protein 5.5 L (6.2-8.2) g/dL Albumin 3.7 L (3.8-4.9) g/dL HDL Cholesterol 39.70 L (40.00-60.00) mg/dL Assessment and Plan Assessment: 1. Right hip avascular necrosis -Postop day 1 status post direct anterior right total hip arthroplasty Plan: 1. Right hip avascular necrosis -right total hip arthroplasty from yesterday, 10/27/2023. Patient stable at bedside this morning with dressing present over right hip. Patient did do well with therapy this morning. Discharge home to date with health services. 2. Appreciate medical management 3. Pain management -[place] 4. DVT prophylaxis -Xarelto in hospital. Going home with Eliquis 2.5 mg twice daily x 30 days 5. GI prophylaxis -senna 6. PT/OT -weightbearing as tolerated with walker 7. Encourage incentive spirometer use 8. Discharge planning -home today with home services Time with Patient: Less than 30
--- NOTE | 2023-10-28 14:51 | P.CONS ---
History of Present Illness - Reason for Consult Consult date: 10/28/23 Thrombophillia evaluation - Chief Complaint Hip pain - History of Present Illness Mr. Rizzo is a 32-year-old gentleman with a past medical history significant for bilateral osteonecrosis of the femoral heads for home hematology was consulted regarding thrombophilia. He notes having received corticosteroid injections in the back in January 2023. In addition, he did have a few courses of oral corticosteroids. Following this, he had progressive bilateral hip pain that did not improve. Prior to his corticosteroid injections and oral corticosteroids, he had no hip pain whatsoever. MRI of the pelvis on 10/03/2023 noted bilateral avascular necrosis of the femoral heads classified as stage IV. He did undergo 5 Radha testing with fibrinogen 325, protein C antigen 154, protein S antigen 108, and factor V Leiden being negative. CBC on 10/24/2023 revealed no cytopenias. He underwent right total hip arthroplasty on 10/27/2023 without complication. He notes prior history of cigarette smoking and is since transition to vape pen. He also notes alcohol use with no evidence of abuse. He denies any personal history of VTE. His father had provoked VTE secondary to testosterone use. Review of Systems 14 point review of systems was conducted pertinent positives and negatives as noted per HPI Past Medical History Past Medical History: No Reported History Additional Past Medical History / Comment(s): 3 herniated discs lower back - had 2 cortisone injections lower right back, had right hip pain 2 days after injections, possible hypercoagulable state History of Any Multi-Drug Resistant Organisms: None Reported Past Surgical History: No Surgical Hx Reported Additional Past Surgical History / Comment(s): BMT, undescended testicle as infant, wisdom teeth extraction Past Anesthesia/Blood Transfusion Reactions: No Reported Reaction Past Psychological History: No Psychological Hx Reported Smoking Status: Former smoker Past Alcohol Use History: Occasional Additional Past Alcohol Use History / Comment(s): quit smoking cigarettes 2017, smoked less than 1 ppd x 6 yrs, vaped x 4 yrs - quit vaping 09/2023 Past Drug Use History: None Reported Additional Drug Use History / Comment(s): vapes marijuana occasionally - Past Family History Father Additional Family Medical History / Comment(s): blood clotting issue due to a medication he was on Mother Additional Family Medical History / Comment(s): viral damage to brain - no residual damage Medications and Allergies Home Medications Medication Instructions Recorded Confirmed Type HYDROcodone/APAP 5-325MG [Distant 5] 1 each PO Q6HR PRN #12 tab 11/14/22 10/27/23 Rx Pregabalin [Lyrica] 150 mg PO BID 10/24/23 10/27/23 History Apixaban [Eliquis] 2.5 mg PO BID #60 tab 10/28/23 Rx HYDROcodone/APAP 7.5-325MG [Distant 1 - 2 tab PO Q6HR PRN #32 tab 10/28/23 Rx 7.5-325] Sennosides/Docusate Sodium [Senna 1 each PO DAILY #20 capsule 10/28/23 Rx Plus 8.6-50 mg Softgel] Allergies Allergy/AdvReac Type Severity Reaction Status Date / Time No Known Allergies Allergy Verified 10/27/23 08:29 Physical Exam Vitals: Vital Signs Temp Pulse Resp BP Pulse Ox 10/28/23 07:38 98.6 F 71 18 118/64 99 10/28/23 02:09 98.4 F 86 20 122/68 99 10/27/23 19:13 98.6 F 98 20 124/78 96 10/27/23 16:00 107 H 130/85 10/27/23 15:45 88 129/80 10/27/23 15:30 92 126/81 10/27/23 15:15 101 H 146/94 10/27/23 15:00 102 H 140/92 10/27/23 14:45 83 121/77 Intake and Output 10/27/23 10/28/23 10/28/23 22:59 06:59 14:59 Intake Total 960 Output Total 600 Balance -600 960 Intake: Oral 960 Output: Urine 600 Other: Voiding Method Toilet Toilet Urinal Urinal # Voids 3 - Constitutional General appearance: cooperative, no acute distress - EENT Eyes: EOMI - Respiratory Respiratory: bilateral: CTA - Cardiovascular Rhythm: regular - Gastrointestinal General gastrointestinal: no distended, soft, no tenderness - Integumentary Integumentary: no rash - Neurologic Neurologic: CNII-XII intact Results CBC & Chem 7: 10/28/23 05:40 10/28/23 05:40 Labs: Abnormal Lab Results - Last 24 Hours (Table) 10/28/23 10/28/23 Range/Units 05:40 05:40 RBC 3.83 L (4.40-5.60) X 10*6/uL Hgb 12.3 L (13.0-17.0) g/dL Hct 36.0 L (39.6-50.0) % MCH 32.1 H (27.0-32.0) pg Eosinophils # 0.01 L (0.04-0.35) X 10*3/uL BUN 6.4 L (9.0-27.0) mg/dL BUN/Creatinine Ratio 9.14 L (12.00-20.00) Ratio Calcium 8.6 L (8.7-10.3) mg/dL Total Protein 5.5 L (6.2-8.2) g/dL Albumin 3.7 L (3.8-4.9) g/dL HDL Cholesterol 39.70 L (40.00-60.00) mg/dL Assessment and Plan (1) Avascular necrosis of femoral head Current Visit: Yes Status: Acute Code(s): M87.059 - IDIOPATHIC ASEPTIC NECROSIS OF UNSPECIFIED FEMUR SNOMED Code(s): 269049447 Plan: Osteonecrosis of the bilateral femoral heads -Developed bilateral hip pain after corticosteroid injection of the hip -Did receive a few courses of oral corticosteroids as well prior to this -MRI on 10/03/2023 noted bilateral osteonecrosis of the femoral heads -Underwent right total hip replacement on 10/27/2023, which he tolerated thousand having complications -It is unclear if this is related to the corticosteroid injection of the hip, which has been reported to be a rare complication. He does not appear to have been on oral corticosteroids long enough for this to have been potential etiology -He has no prior history of VTE nor significant family history of unprovoked VTE -There is small data suggesting possible link between some cases of osteonec rosis and inherited thrombophilia. He did have factor V Leiden and protein C/S testing performed on 09/27/2023, which was nonremarkable -I do not recommend any further thrombophilia testing at this time given the lack of evidence to suggest broad thrombophilia workup in the setting of osteonecrosis along with a lack of personal or family history of unprovoked VTE We remain available if additional questions or concerns arise in the future Ahsan Olsen MD
[2023-10-28 15:41] VITALS: BP 128/77; PULSE 82; TEMP 98.7
--- NOTE | 2023-10-28 17:17 | P.PN ---
Subjective Progress Note Date: 10/28/23 Hospital course: Patient is a pleasant 32-year-old male with history of 3 herniated lumbar disc status post cortisone injections, frequent alcohol use/abuse, previous nicotine dependence, occasional marijuana use, and recently diagnosed with avascular necrosis. He is currently admitted under orthopedic surgery team and is status post right total hip arthroplasty secondary to his stage IV avascular necrosis. We were consulted for medical management throughout admission. Physical exam: Vital signs reviewed and stable. General: Nontoxic, no distress and appears stated age. Derm: Skin warm and dry, normal coloration for ethnicity. Head: Atraumatic, normocephalic and symmetric. Eyes: EOMs intact, no lid lag, and anicteric sclera Mouth: no lip lesions, mucus membranes moist Cardiovascular: regular rate and rhythm with normal S1S2, no murmur, positive posterior tibial pulses bilaterally, and cap refill < 2 seconds. Lungs: Respirations even, regular, and unlabored on room air. Lungs CTA bilaterally, no rhonchi, no rales, no wheezing, and no accessory muscle usage. Abdominal: soft, nontender to palpation, no guarding, no appreciable organomegaly Ext: Movement and sensation intact. Postoperative dressing right lateral hip is clean, dry, and intact. No gross muscle atrophy, no edema, no contractures Neuro: Speech clear, face symmetrical and CN II-XII grossly intact with no noted focal neuro deficits Psych: Alert and oriented to person, place, time, and situation. Appropriate and pleasant affect. Assessment and Plan of Care: Avascular necrosis -Unclear etiology possibly secondary to previous cortisone injections in lumbar spine vs lifestyle choices with previous nicotine dependence and frequent alcohol use (3-4 days per week drinking moderately). -Patient reports full cessation of nicotine use reporting quitting smoking c igarettes in 2018 and vaping 09/2023. Recommend continued cessation of nicotine use. -Recommend full cessation or decreasing alcohol use. Patient reports last alcoholic drink being 3 days prior to surgery. -Will obtain morning labs including CBC, CMP, coagulation profile, lipid profile, and hemoglobin A1c. Acute postoperative blood loss anemia CBC showing mild postoperative blood loss anemia with preoperative hemoglobin of 15.9 and postoperative hemoglobin of 12.3. This is a stable and expected finding. No signs of active bleeding. No need for intervention or further testing at this time. History of frequent alcohol use/abuse -Order placed for monitoring of CIWA scores and patient to be medicated with Ativan 0.5 mg every 4 hours as needed for CIWA score of 4-5, Ativan 1 mg every 4 hours for CIWA score of 6-7, Ativan 2 mg every 3 hours CIWA score of 8-9, and Ativan 2 mg every 2 hours for CIWA score of 10 or greater. -Thiamine 100 mg daily, Multivitamin daily, and folate 1 mg daily -Seizure and fall precautions in place. -Urine drug screen -Continued close monitoring of electrolytes and replace as needed. Status post right total hip arthroplasty resulting from stage IV avascular necrosis -Management per primary admitting orthopedic surgery team Data reviewed: Postoperative labs reviewed. CBC showing mild postoperative blood loss anemia with preoperative hemoglobin of 15.9 and postoperative hemoglobin of 12.3. Coagulation profile normal findings. BMP unremarkable. Hemoglobin A1c 5.4%. Magnesium normal findings at 1.9. Liver profile unremarkable with exception of mild hypoalbuminemia with albumin of 3.7. Triglycerides normal findings at 93.20 and lipid profile unremarkable with the exception of low HDL of 39.70. Vital signs reviewed: Blood pressure 118/64, heart rate 71, respiratory rate 18, temp 98.6 F, and SpO2 of 99% on room air. From a medical perspective, patient is medically optimized and cleared for discharge at this time once cleared by primary admitting orthopedic surgery team. Advised cessation of alcohol use and continued avoidance of nicotine. Thank you for allowing us to participate in the care of this pleasant patient. Do not hesitate to contact us with questions. Someone can be reached from the [facility] hospitalist group all hours of the day at [phone] or via perfect serve. Patient was seen independently by Nurse Practitioner. This document was prepared using [email or web address] dictation software. Please allow for errors in site monitor while rare they do occur. I reviewed the documentation as provided by the JOSE above, who is the original author of this note. I agree with the documented assessment and plan, with the following changes: none Objective - Vital Signs Vital signs: Vital Signs Temp 98.6 F 10/28/23 07:38 Pulse 71 10/28/23 07:38 Resp 18 10/28/23 07:38 BP 118/64 10/28/23 07:38 Pulse Ox 99 10/28/23 07:38 FiO2 Intake & Output 10/27/23 10/28/2324 18:59 06:59 18:59 Intake Total 1901 960 Output Total 250 500 Balance 1651 460 Weight 86.1 kg Intake: IV 1901 Oral 960 Output: Urine 100 500 Estimated Blood Loss 150 Other: Voiding Method Toilet Urinal # Voids 3 - Labs CBC & Chem 7: 10/28/23 05:40 10/28/23 05:40
== END 2023-10-28 17:05 | disposition home health service (06) ==
LOC: OR 07:58 → 4SSUR 12:36 → OR 10-28 17:05
PROVIDERS: ATTEND Orthopaedic Surgery
DX: M87.851 Other osteonecrosis, right femur (principal); G89.18 Other acute postprocedural pain; Z94.81 Bone marrow transplant status; Z87.891 Personal history of nicotine dependence; Z79.899 Other long term (current) drug therapy
CPT/HCPCS: 97110; 97163; 80061; 80053; 83735; 85025; 85610; 85730; 83036; 73501; 27130; 64447; J2250; J1100; J0690 ×3; J2405; J1170 ×2

== ENCOUNTER → 2023-12-04 | Outpatient (CLI) | payer BC ==
[2023-12-04 15:43] LABS: INR 0.99 sec (0.93-1.11); Prothrombin Time 10.7 sec (9.9-11.9)
[2023-12-04 15:59] LABS: Basophils # (A) 0.04 X 10*3/uL (0.00-0.10); Basophils % (A) 0.9 %; Eosinophils # (A) 0.08 X 10*3/uL (0.04-0.35); Eosinophils % (A) 1.7 %; HCT 43.4 % (39.6-50.0); HGB 14.5 g/dL (13.0-17.0); Lymphocytes # (A) 1.87 X 10*3/uL (0.90-5.00); MCH 30.9 pg (27.0-32.0); MCHC 33.4 g/dL (32.0-37.0); MCV 92.5 FL (80.0-97.0); Mean Platelet Volume 9.3 FL (9.5-12.2); Monocytes # (A) 0.36 X 10*3/uL (0.20-1.00); Monocytes % (A) 7.7 %; NRBC Per 100 WBC 0 X 10*3/uL (0.00-0.01); Neutrophils # (A) 2.31 X 10*3/uL (1.80-7.70); Neutrophils % (A) 49.5 %; Platelet Count 238 X 10*3/uL (140-440); RBC 4.69 X 10*6/uL (4.40-5.60); RDW 12.6 % (11.5-14.5); WBC 4.67 X 10*3/uL (4.50-10.00)
[2023-12-04 19:29] LABS: Blood Urea Nitrogen 6.4 mg/dL (9.0-27.0); Calcium 9.7 mg/dL (8.7-10.3); Carbon Dioxide 23.7 mmol/L (21.6-31.8); Chloride 106 mmol/L (96-109); Glucose 86 mg/dL (70-110); Sodium 142 mmol/L (135-145)
== END | disposition home or self-care (01) ==
LOC: LABPAT 13:01
PROVIDERS: ATTEND Orthopaedic Surgery
DX: Z01.812 Encounter for preprocedural laboratory examination (principal); M87.052 Idiopathic aseptic necrosis of left femur
CPT/HCPCS: 80048; 85025; 85610; 86850; 86900; 86901

== ENCOUNTER 2023-12-12 05:41 | Day surgery (SDC) | payer BC ==
--- NOTE | 2023-12-11 09:45 | P.HPOR ---
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 It's progressively worsened. He has anterior groin and thigh pain with any weightbearing activities. He also notes stiffness. He previously underwent right total hip arthroplasty for avascular necrosis. Review of Systems As per HPI Past Medical History Past Medical History: No Reported History Additional Past Medical History / Comment(s): Possible hypercoagulable state History of Any Multi-Drug Resistant Organisms: None Reported Past Surgical History: No Surgical Hx Reported Additional Past Surgical History / Comment(s): 10/27/23 RIGHT HIP REPLACEMENT Past Anesthesia/Blood Transfusion Reactions: No Reported Reaction Smoking Status: Vaper - Past Family History Mother Family Medical History: No Reported History Father Family Medical History: Deep Vein Thrombosis (DVT) Medications and Allergies Home Medications Medication Instructions Recorded Confirmed Type Pregabalin [Lyrica] 150 mg PO BID 10/24/23 12/07/23 History Apixaban [Eliquis] 2.5 mg PO BID #60 tab 10/28/23 12/07/23 Rx HYDROcodone/APAP 7.5-325MG [[place] 1 - 2 tab PO Q6HR PRN #32 tab 10/28/23 12/07/23 Rx 7.5-325] Allergies Allergy/AdvReac Type Severity Reaction Status Date / Time No Known Allergies Allergy Verified 12/07/23 13:52 Physical Examination - Hip left Gait: antalgic Tenderness with palpation: anterior Pain with motion: internal rotation and hip flexion ROM: flexion: 60 degrees ROM: internal rotation: 0 degrees (The pain) ROM: external rotation: 50 degrees Crepitus with motion: Yes Strength: extension: 5/5 Strength: flexion: 5/5 Strength: abduction: 5/5 Tests: impingement tests: positive Results Patient is a well-developed well-nourished male approximately 6 foot 3, 190 pounds of mesomorphic habitus. HEENT exam is nonfocal, neck is supple. He has painful passive motion of the left hip. Straight leg raise is negative. He does have some shortening of left lower extremity compared to the right. His distal neurovascular exam appears intact in the left lower extremity. - Diagnostic results Hip x-ray: image reviewed (AP of the pelvis shows left hip avascular necrosis with collapse of the femoral head and a positive crescent sign.) Assessment and Plan Assessment: Left hip avascular necrosisstage IV Plan: I talked to the patient at length regarding his condition along with treatment options. At this point he is quite symptomatic despite previous conservative measures. After a thorough discussion he opts to proceed with surgery. Risks and benefits were discussed at length in layman's terms. We will plan to proceed with left total hip arthroplasty utilizing an anterior approach.
[2023-12-12] MEDS ORDERED: MIDAZOLAM 2 MG/2 ML VIAL IV PRN (07:00)
[2023-12-12] MEDS: ACETAMINOPHEN TAB 500 MG TAB PO PRN (11:58)
[2023-12-12] MEDS: MELOXICAM 7.5 MG TAB PO PRN (11:58)
[2023-12-12] MEDS: DEXAMETHASONE SOD PHOSPHATE 4 MG/ML 1 ML VIAL IV ONE (12:04)
[2023-12-12] MEDS: IV FLUID CONTINUATION 1,000 ML IV ONE ×2 (12:04→16:03)
[2023-12-12] MEDS: ONDANSETRON 4 MG/2 ML VIAL IVP ONE (12:05)
[2023-12-12] MEDS: LACTATED RINGERS 1,000 ML IV SCH (12:13)
[2023-12-12] MEDS: MIDAZOLAM 2 MG/2 ML VIAL IVP ONE (12:17)
[2023-12-12] MEDS: fentaNYL (PF) 50 MCG/ML 2 ML AMP IVP ONE (12:19)
--- NOTE | 2023-12-12 12:25 | P.ANPRN ---
Procedure Note - Anesthesia - Nerve Block Performed Left Alvin Single Time Out Performed: Yes Date of Procedure: 12/12/23 Procedure Start Time: 12:17 Procedure Stop Time: 12:22 Location of Patient: PreOp Indication: Acute Post-Operative Pain, Requested by Surgeon Sedation Type: Sedate with meaningful contact maintained Preparation: Sterile Prep Position: Supine Needle Types: Pajunk Needle Gauge: 21 Ultrasound used to visualize needle placement: Yes Ultrasound used to observe medication spread: Yes Injectate: 0.5% Ropivacaine (see comment for volume) (30 ml + 4 mg Dexamethas one) Blood Aspirated: No Pain Paresthesia on Injection Noted: No Resistance on Injection: Normal Image Stored and Saved: Yes Events: Uneventful and Well Tolerated
[2023-12-12] MEDS ORDERED: PROPOFOL 10 MG/ML 20 ML VIAL IV ONE (12:29)
[2023-12-12] MEDS ORDERED: diphenhydrAMINE 50 MG/ML 1 ML VIAL ONE (12:29)
[2023-12-12] MEDS ORDERED: TRANEXAMIC 1,000 MG/100ML-NACL PREMIX BAG ONE (12:29)
[2023-12-12] MEDS ORDERED: fentaNYL (PF) 50 MCG/ML 2 ML AMP ONE (12:29)
[2023-12-12] MEDS ORDERED: ROPIVACAINE 5 MG/ML 30 ML VIAL ONE (12:29)
[2023-12-12] MEDS ORDERED: SODIUM CHLORIDE 0.9% (PF) 10 ML VIAL ONE (12:29)
[2023-12-12] MEDS ORDERED: ePHEDrine 50 MG/ML 1 ML VIAL ONE (12:29)
[2023-12-12] MEDS ORDERED: MIDAZOLAM 2 MG/2 ML VIAL ONE (12:29)
[2023-12-12] MEDS: ceFAZolin 1,000 MG in SODIUM CHLORIDE 0.9% 1,000 ML IRRIGATION ONE (13:08)
[2023-12-12] MEDS: LACTATED RINGERS 1,000 ML IV ONE (13:45)
[2023-12-12] MEDS ORDERED: MAGNESIUM HYDROXIDE 2,400 MG/30 ML CUP PO PRN (14:24)
[2023-12-12] MEDS ORDERED: NALOXONE 0.4 MG/ML 1 ML VIAL IV PRN (14:24)
[2023-12-12] MEDS ORDERED: hydrOXYzine pamoate 25 MG CAP PO PRN (14:24)
[2023-12-12] MEDS ORDERED: HYDROmorphone 0.5 MG/0.5 ML SYRINGE IVP PRN (14:24)
[2023-12-12] MEDS ORDERED: HYDROcodone/APAP 5-325MG 1 EACH TAB PO PRN (14:24)
--- NOTE | 2023-12-12 14:45 | P.OP ---
Date of Procedure: 12/12/23 Preoperative Diagnosis: Avascular necrosis left hipstage IV Postoperative Diagnosis: Same Procedure(s) Performed: Left total hip arthroplastyanterior approachpress-fit Implants: Depuy Corail size 14 high [id number] degree collared press-fit femoral stem, 36+1.5 ceramic femoral head, 60 mm [place] acetabular shell with neutral polyethylene liner. Anesthesia: spinal Surgeon: Jose Silva Claims Correspondence Clerk #1: Kyle Harrison Estimated Blood Loss (ml): 300 Pathology: other (Femoral head) Disposition: PACU Indications for Procedure: The patient is a 33-year-old male who presents with progressive left hip pain secondary to stage IV avascular necrosis. A discussion of the risks and benefits of operative intervention was made with the patient. He opted to proceed. Operative risks include infection, neurovascular injury, development of blood clots, leg length discrepancy, fracture, possible instability, possible component loosening/failure and possible need for subsequent procedures was discussed. Informed consent was obtained. Operative Findings: As below Description of Procedure: The patient was brought to the operating room, and after induction of spinal anesthesia was placed supine on the Alesha table. Positioning was checked with fluoroscopy. The left hip was then prepped and draped in a normal fashion. A 12 cm incision was then made starting 2 fingerbreadths distal and 3 finger monique ths posterior to the ASIS in line with the proximal femur. The skin was incised sharply. Subcutaneous tissues were divided sharply. Electrocautery was used for hemostasis. The fascia was split in line with skin incision. The interval between the sartorius and tensor fascia vasyl was then bluntly developed. The posterior fascia was opened with electrocautery. The lateral circumflex vessels were identified and cauterized prior to sectioning. A retractor was placed along the superior femoral neck as well as the anterior acetabular rim. A wide capsulotomy was performed. The neck cut was then made at a 45 angle to the shaft approximately 1 1/2 cm above the level of the lesser trochanter. The head was extracted. Attention was then paid towards preparing the acetabular. Anterior and posterior retractors were placed. The remaining capsular labral tissue sharply debrided clearly defining the acetabular margins. I began reaming with a 53 mm reamer taking care to initially medialize then reaming at 45 of abduction and 20 of anteversion. Sequential reaming is performed up to 59 mm. A trial 60 mm acetabular shell was inserted in the same orientation and was fully seated. There was good rim fit and stability. Positioning was checked with fluoroscopy. The final 60 mm acetabular shell was inserted again at 45 of abduction and 20 of anteversion. This was fully seated. There was good rim fit and stability. Again fluoroscopy was used to check the adequacy of placement. A neutral polyethylene liner was gently impacted. Care was taken to avoid any soft tissue interposition. Pulsatile lavage was utilized. Attention was then paid towards preparing the proximal femur. The central region was cleared of soft tissue. A canal finder was used to find the femoral canal. Sequential broaching was performed up to size 14 taking care to lateralize proximally. A calcar mill was used to fashion the medial calcar. There was good rotational stability. A 135 degree high offset neck along with a 36 mm +1.5 head was placed. The hip was gently reduced. Fluoroscopy was used to check the adequacy of positioning along with leg lengths. I felt both were good. The hip was gently dislocated. The trial components were removed. The final size 14 collared standard press-fit femoral stem was inserted parallel to the posterior cortex. This was fully seated and there was good rotational stability. A 36 mm +1.5 ceramic femoral head was placed. This was gently impacted. The hip was then gently reduced. Final fluoroscopic view showed adequate placement implant along with yazidism of leg length. Stability was checked with 80 of external rotation and 60 of extension of the right hip. The wound was irrigated with sterile lavage. The fascia was closed with running 0 Vicryl suture. There was minimal drainage therefore a deep drain was not placed. The second dose of IV TXA was given. The subcutaneous tissues were reapproximated interrupted 2-0 Vicryl sutures. The skin was reapproximated with 3-0 subcuticular strata fix suture. Skin tape and adhesive was applied. A sterile dressing was applied. The patient was then awoken from sedation and transferred to recovery room in good condition. Blood loss was estimated at 300 mL. No complications were incurred. Sponge and needle counts were correct at the end of the case. Kyle THOMPSON assisted during the major components is case to include exposure, bone resection, implantation, and closure.
--- NOTE | 2023-12-12 15:01 | XR ---
Fluoroscopy History: ANTERIOR HIP DAP 1.8445 FL 29.3 LEFT ANTERIOR HIP
--- NOTE | 2023-12-12 15:19 | XR ---
EXAMINATION TYPE: XR Hip Limited LT DATE OF EXAM: 12/12/2023 CLINICAL HISTORY: Postoperative evaluation TECHNIQUE: Single portable view of the left hip was submitted. FINDINGS: Noted are changes of total hip arthroplasty with femoral and acetabular components appearin g well seated. Alignment is anatomic. Postsurgical soft tissue changes are evident. IMPRESSION: Satisfactory postoperative alignment
[2023-12-12] MEDS: HYDROmorphone 1 MG/ML 1 ML SYRINGE IVP PRN (15:27)
[2023-12-12] MEDS: HYDROmorphone 0.5 MG/0.5 ML SYRINGE IVP PRN (15:58)
[2023-12-12] MEDS: HYDROcodone/APAP 7.5-325MG 1 EACH TAB PO PRN ×2 (17:07→22:02)
[2023-12-12] MEDS: SCOPOLAMINE 1 MG/72 HR PATCH TRANSDERM ONE (17:42)
[2023-12-12] MEDS ORDERED: NON FORMULARY DRUG (Pregabalin [Lyrica] 150 MG Capsule) PO SCH (21:00)
[2023-12-12] MEDS: SENNOSIDES-DOCUSATE SODIUM 1 EACH TAB PO SCH (21:19)
[2023-12-12] MEDS: PREGABALIN 75 MG CAP PO SCH (21:19)
--- NOTE | 2023-12-12 23:53 | P.CONS ---
History of Present Illness - Reason for Consult Consult date: 12/12/23 Medical management Requesting physician: Jose Silva - Chief Complaint Post anterior approach left total hip arthroplasty - History of Present Illness HISTORY OF PRESENT ILLNESS: 33-year-old with active medical history of to be herniated lumbar disc with a chronic history of lower back pain, post epidural injection over a year ago caused avascular necrosis of both hips, chronic pain syndrome has been on hydrocodone and Lyrica, post recent history of anterior approach right total hip arthroplasty with Dr. Silva back in October 27, 2023 which patient has done very well with. Also patient has questionable of hypercoagulable status not on any anticoagulation regularly. Apparently has been seen by pain management over a year and half ago but patient ended up having epidural injection 6 days later developed to have bilateral hip pain and worsening arthritis was referred eventually to see Ortho x-ray of both hips at that time showed avascular necrosis. Eventually patient was seen Dr. Ribeiro and ended up being scheduled for elective right total hip arthroplasty which was done in October 27, 2023 the patient has done very well since then he returned back for another elective left total hip arthroplasty anterior approach which was done today successfully without major complication patient remained hemodynamically stable at this point. Was admitted to the floor remain on pain management, anticoagulation and pulmonary prophylaxis. REVIEW OF SYSTEMS: CONSTITUTIONAL: Well-developed no acute respiratory distress. EYES: No icterus sclerae, no conjunctivitis. EARS, NOSE, MOUTH, THROAT, and FACE: No sore throat, lymphadenopathy, carotid bruits or deformity. RESPIRATORY: No SOB cough or wheezes. CARDIOVASCULAR: No CP, Palpitation, PND, Orthopnea, or angina. GASTROINTESTINAL: No Abd pain, Nausea or vomiting, no Diarrhea or constipation, No GI Bleed, no distention or masses. GENITOURINARY: Negative for Hematuria or UTI, no kidney stones. INTEGUMENT/BREAST: Negative for any muscular injury with mild osteoarthritis.. HEMATOLOGIC/LYMPHATIC: Negative for bleed or purpura. MUSCULOSKELTAL: Mild arthralgia and myalgia with lower back pain post right total hip arthroplasty. NEURLOGICAL: No LOC, Sz or syncope, blurred vision dizziness or abnormality.. BEHAVIORAL/PSYCH: Negative. ENDOCRINE: Negative. PHYSICAL EXAMINATION: General Appearance: Alert, cooperative, no distress, appears stated age. Neck HEENT: Supple, no lymphadenopathy, no thyroid enlargement, no carotid bruits. Lungs: Clear to auscultation without crackles or wheezes no rhonchi, no deformity. Chest Wall: Chest wall normal expansion with deep inspiration no tenderness and no deformity was found on exam, no costochondral pain or discomfort. Heart: Regular rate and rhythm, S1, S2 normal, no murmur, rub or gallop. Back: Symmetric, no curvature, ROM normal, no CVA tenderness. Abdomen: Soft, non-tender, bowel sounds active all four quadrants, no masses, no organomegaly. Extremities: No edema both legs are equal length, incision on the left side looks fine, no hematoma or bleeding, incision of the right side still have slight keloid only. No sign of dropping foot no lack of sensation. Pulses: 2+ and symmetric. Skin: Skin color, texture, tugor normal, no rashes or lesions. Neurologic: Alert oriented x3 cranial nerves II through XII intact, no motor deficit, no abnormal balance or gait. ASSESSMENT AND PLAN: _Post left total hip anterior approach arthroplasty: Start physical therapy, continue pain management with hydromorphone and hydrocodone also patient is back to on his Lyrica at this point. Start PT OT as early as tomorrow morning, DVT, GI, pulmonary prophylaxis pro tocol. Will watch patient hemodynamic status carefully. _Avascular necrosis of both hips secondary to steroid injection with epidural post bilateral total hip arthroplasty. _Chronic pain syndrome: Has been on hydrocodone and Lyrica. _DVT prophylaxis: Was started on Xarelto 10 mg a day patient apparently was on Eliquis 2.5 mg twice a day at home and was continued for total of 4 weeks. _GI prophylaxis: Patient be on Pepcid 20 mg daily. CODE STATUS: Full code. Dr. Silva thank very much for the consult if I can be any further help to please them know. Past Medical History Past Medical History: No Reported History Additional Past Medical History / Comment(s): Possible hypercoagulable state History of Any Multi-Drug Resistant Organisms: None Reported Past Surgical History: No Surgical Hx Reported Additional Past Surgical History / Comment(s): 10/27/23 RIGHT HIP REPLACEMENT Past Anesthesia/Blood Transfusion Reactions: No Reported Reaction Past Psychological History: No Psychological Hx Reported Smoking Status: Vaper Past Alcohol Use History: Occasional Additional Past Alcohol Use History / Comment(s): LIGHT NICOTINE VAPE Past Drug Use History: None Reported - Past Family History Mother Family Medical History: No Reported History Father Family Medical History: Deep Vein Thrombosis (DVT) Medications and Allergies Home Medications Medication Instructions Recorded Confirmed Type Pregabalin [Lyrica] 150 mg PO BID 10/24/23 12/12/23 History Apixaban [Eliquis] 2.5 mg PO BID #60 tab 10/28/23 12/12/23 Rx HYDROcodone/APAP 7.5-325MG [[place] 1 - 2 tab PO Q6HR PRN #32 tab 10/28/23 12/12/23 Rx 7.5-325] Allergies Allergy/AdvReac Type Severity Reaction Status Date / Time No Known Allergies Allergy Verified 12/07/23 13:52 Physical Exam Vitals: Vital Signs Temp Pulse Resp BP Pulse Ox 12/12/23 20:27 97.5 F L 74 17 131/83 99 12/12/23 18:00 97.7 F 77 17 141/79 98 12/12/23 17:14 62 16 134/90 100 12/12/23 16:15 63 16 122/93 100 12/12/23 15:45 58 L 16 118/76 98 12/12/23 15:30 61 16 115/76 100 12/12/23 15:15 57 L 18 116/72 100 12/12/23 14:56 58 L 20 115/74 99 12/12/23 14:41 60 16 97/69 99 12/12/23 12:25 70 16 114/71 97 12/12/23 11:42 98.5 F 74 18 132/83 98 Intake and Output 12/12/23 12/12/23 12/13/23 14:59 22:59 06:59 Intake Total 2050 500 Output Total 300 Balance 1751 500 Intake: IV 2050 500 Output: Estimated Blood Loss 300 Other: Weight 86.1 kg 86.1 kg
[2023-12-13 07:28] VITALS: BP 130/81; PULSE 71; RESP 17; TEMP 98.1
[2023-12-13] MEDS: RIVAROXABAN 10 MG TAB PO SCH (08:21)
[2023-12-13] MEDS: FAMOTIDINE 20 MG TAB PO SCH (08:21)
[2023-12-13 08:41] LABS: Basophils # (A) 0.01 X 10*3/uL (0.00-0.10); Basophils % (A) 0.1 %; Eosinophils # (A) 0 X 10*3/uL (0.04-0.35); Eosinophils % (A) 0 %; HCT 38.4 % (39.6-50.0); HGB 12.3 g/dL (13.0-17.0); Lymphocytes # (A) 0.94 X 10*3/uL (0.90-5.00); Lymphocytes % (A) 10.6 %; MCH 30.5 pg (27.0-32.0); MCV 95.3 FL (80.0-97.0); Mean Platelet Volume 9.7 FL (9.5-12.2); Monocytes # (A) 0.81 X 10*3/uL (0.20-1.00); Monocytes % (A) 9.2 %; NRBC Per 100 WBC 0 X 10*3/uL (0.00-0.01); Neutrophils # (A) 7.04 X 10*3/uL (1.80-7.70); Neutrophils % (A) 79.6 %; Platelet Count 280 X 10*3/uL (140-440); RBC 4.03 X 10*6/uL (4.40-5.60); RDW 12.3 % (11.5-14.5); WBC 8.84 X 10*3/uL (4.50-10.00)
--- NOTE | 2023-12-13 11:05 | FL ---
EXAMINATION TYPE: FL guidance operating room DATE OF EXAM: 12/12/2023 HISTORY: Fluoroscopy time Total dose area product (DAP) in uGy*m?, mGy*cm? (or similar): 1.8445 IMPRESSION: 1. Fluoroscopy time.
--- NOTE | 2023-12-13 11:35 | P.DS ---
Providers Date of admission: 12/12/2023 Expected date of discharge: 12/13/23 Attending physician: Jose Silva Consults: 12/12/23 14:24 Consult Physician Routine Consulting Provider: Gurmeet Morales Reason/Comments: medical management s/p direct anterior left total hip arthroplasty Do you want consulting provider notified?: Yes Primary care physician: Gurmeet Morales Hospital Course: Date of admission: 12/12/2023 Date of discharge: 12/13/2023 Admission diagnosis: Avascular necrosis left hipstage IV Discharge diagnosis: Same Attending physician: Dr. Silva Surgical procedures: Direct anterior left total hip arthroplasty Brief history: Patient is a 33-year-old male with a history of Avascular necrosis left hipstage IV. At this point patient has failed conservative treatment measures and has opted to proceed with a elective direct anterior left total hip arthroplasty. Hospital course: Details of patient's surgery can be found in operative report. Patient tolerated the procedure well and was subsequently transported to orthopedic floor. Patient's orthopeidc and medical care was provided daily. Patient had daily laboratory tests performed for evaluation of overall blood counts. Patient had daily physical therapy to include strengthening range of motion as well as education with walker ambulation. Patient was treated with Xarelto for their postoperative DVT prophylaxis during their inpatient stay. Patient was noted to have a relatively uneventful postoperative course. Patient reported satisfactory pain control with oral pain medications by postoperative day 1. Patient showed satisfactory progress with physical therapy. Patient moved steadily through the program and had no difficulty meeting the goals by postoperative day 1. Given patient's otherwise satisfactory course and having met physical therapy goals, plan is to discharge patient home with health services on postoperative day 1. Discharge condition/disposition: Patient will be discharged home with health services in stable condition. Discharge medications: Instructions are given on resumption of patient's normal daily medications per primary care recommendation, in addition patient will be prescribed [place]; senna; Eliquis 2.5 mg twice a day 2 weeks. Discharge instructions: 1. Wound care and infection precautions, keep incision dry and covered while showering, no lotions, creams, moisturizers. No soaking, tubs, pools, hottubs. Do not scrub over the incision. 2. Weight-bear as tolerated with walker / cane until follow-up. 3. Ice and elevate when necessary. Do not exceed 20 minutes per hour with ice pack. 4. Utilize compression sleeve until seen at first follow up appointment. 5. Visiting nursing care. 6. Home physical therapy. 7. Pain meds and anticoagulants per prescription. 8. Pain medication has potential to cause constipation. Increase oral fluid and fiber intake. Contact primary care provider if you have not had a bowel movement within 48 hours after discharge 9. No anti-inflammatory medication until discussed at first post operative visit, this including Motrin, Aleve, Mobic, Diclofenac. 10. Follow up in office at 2 weeks postop with Nicola Ortiz PA-C / Kyle Harrison PA-C 11. Follow up with your primary care doctor 7-10 days after discharge. 12. Contact [facility] with any questions, . Assessment: Avascular necrosis left hipstage IV Procedures: Direct anterior left total hip arthroplasty Patient Condition at Discharge: Good Plan - Discharge Summary Discharge Rx Participant: No New Discharge Prescriptions: New HYDROcodone/APAP 7.5-325MG [[place] 7.5-325] 1 - 2 tab PO Q6HR PRN #32 tab PRN Reason: Pain Apixaban [Eliquis] 2.5 mg PO BID #60 tab Sennosides/Docusate Sodium [Senna Plus 8.6-50 mg Softgel] 1 each PO DAILY #20 capsule No Action Pregabalin [Lyrica] 150 mg PO BID Apixaban [Eliquis] 2.5 mg PO BID #60 tab HYDROcodone/APAP 7.5-325MG [[place] 7.5-325] 1 - 2 tab PO Q6HR PRN #32 tab PRN Reason: Pain Discharge Medication List Pregabalin [Lyrica] 150 mg PO BID 10/24/23 [History] Apixaban [Eliquis] 2.5 mg PO BID #60 tab 10/28/23 [Rx] HYDROcodone/APAP 7.5-325MG [[place] 7.5-325] 1 - 2 tab PO Q6HR PRN #32 tab 10/28/23 [Rx] Apixaban [Eliquis] 2.5 mg PO BID #60 tab 12/13/23 [Rx] HYDROcodone/APAP 7.5-325MG [[place] 7.5-325] 1 - 2 tab PO Q6HR PRN #32 tab 12/13/23 [Rx] Sennosides/Docusate Sodium [Senna Plus 8.6-50 mg Softgel] 1 each PO DAILY #20 capsule 12/13/23 [Rx] Follow up Appointment(s)/Referral(s): Kyle Harrison PAC [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 ) Patient Instructions/Handouts: Anterior Hip Replacement (DC), Anterior Hip Replacement (GEN) Activity/Diet/Wound Care/Special Instructions: Orthopedic Discharge Instructions: 1. Wound care and infection precautions, keep incision dry and covered while showering, no lotions, creams, moisturizers. No soaking, pools, hot tubs. Do not scrub over incision. 2. Weight-bear as tolerated with walker / cane until follow-up. 3. Ice and elevate when necessary. Do not exceed 20 minutes per hour with ice pack. 4. Utilize compression sleeve until seen at first follow up appointment. 5. Pain meds and anticoagulants per prescription. 6. Pain medication has potential to cause constipation. Increase oral fluid and fiber intake. Contact primary care provider if you have not had a bowel movement within 48 hours after discharge. 7. No anti-inflammatory medication until discussed at first post operative visit, this including Motrin, Aleve, Mobic, Diclofenac. 8. Follow up in office at 2 weeks postop with Nicola Ortiz PA-C / Kyle Harrison PA-C 9. Follow up with your primary care doctor 7-10 days after discharge. 10. Contact [facility] with any questions, . Keep incision clean, dry, intact. While showering, cover fusion tape with Saran wrap. Keep fusion tape on until follow-up appointment office in 2 weeks Discharge Disposition: HOME WITH HOME HEALTH SERVICES
--- NOTE | 2023-12-13 11:39 | P.PN ---
Subjective Progress Note Date: 12/13/23 Principal diagnosis: Avascular necrosis left hipstage IV Patient was seen at bedside this morning lying semirecumbent position with dressing present over the left anterior hip. Patient says she did do well with therapy was playing walk on the [place] and up-and-down stairs. Patient says he has urinated several times since surgery yesterday without issue. Patient says he has not had bowel movement yet, however, patient says he has been passing gas. Patient denies any other issues at this time. Patient says he does have a walker and cane for home. Patient denies chest pain, fever, chest breath, nausea, Change in vision, loss of bowel/bladder control. Objective - Vital Signs Vital signs: Vital Signs Temp 98.1 F 12/13/23 07:28 Pulse 71 12/13/23 07:28 Resp 17 12/13/23 07:28 BP 130/81 12/13/23 07:28 Pulse Ox 98 12/13/23 07:28 FiO2 Intake & Output 12/12/23 12/13/23 12/13/23 18:59 06:59 18:59 Intake Total 2551 Output Total 300 Balance 2251 Weight 86.1 kg Intake: IV 2551 Output: Estimated Blood Loss 300 Other: # Voids 2 - Exam Left hip: Incision is clean, dry, and intact. The exofin fusion tape is in good condition. There is minimal soft tissue swelling and ecchymosis surrounding the medial and lateral aspects of the incision. Calf is soft, no tenderness with palpation. Plantar flexion, dorsiflexion, EHL, FHL are intact. Sensory exam to light touch throughout the extremity is intact, dorsal pedis pulses 2+. - Labs CBC & Chem 7: 12/13/23 04:39 Labs: Abnormal Lab Results - Last 24 Hours (Table) 12/13/23 Range/Units 04:39 RBC 4.03 L (4.40-5.60) X 10*6/uL Hgb 12.3 L (13.0-17.0) g/dL Hct 38.4 L (39.6-50.0) % Eosinophils # 0 L (0.04-0.35) X 10*3/uL Assessment and Plan Assessment: Avascular necrosis left hipstage IV - Postoperative day 1 status post direct anterior left total hip arthroplasty Plan: 1. Avascular necrosis left hipstage IV - direct anterior left total hip ar throplasty performed yesterday, 12/12/2023. Patient stable bedside this morning. Patient does have a walker and cane at home. Discharge home today with health services. 2. Appreciate medical management 3. Pain management - [place] 4. DVT prophylaxis -Xarelto in hospital. Going home with Eliquis 5. GI prophylaxis - senna 6. PT/OT - weightbearing as tolerated with walker 7. Encourage incentive spirometer use 8. Discharge planning - home today with health services Time with Patient: Less than 30
--- NOTE | 2023-12-13 13:00 | P.PN ---
Subjective Progress Note Date: 12/13/23 HISTORY OF PRESENT ILLNESS: 33-year-old with active medical history of to be herniated lumbar disc with a chronic history of lower back pain, post epidural injection over a year ago caused avascular necrosis of both hips, chronic pain syndrome has been on hydrocodone and Lyrica, post recent history of anterior approach right total hip arthroplasty with Dr. Silva back in October 27, 2023 which patient has done very well with. Also patient has questionable of hypercoagulable status not on any anticoagulation regularly. Apparently has been seen by pain management over a year and half ago but patient ended up having epidural injection 6 days later developed to have bilateral hip pain and worsening arthritis was referred eventually to see Ortho x-ray of both hips at that time showed avascular necrosis. Eventually patient was seen Dr. Ribeiro and ended up being scheduled for elective right total hip arthroplasty which was done in October 27, 2023 the patient has done very well since then he returned back for another elective left total hip arthroplasty anterior approach which was done today successfully without major complication patient remained hemodynamically stable at this point. Was admitted to the floor remain on pain management, anticoagulation and pulmonary prophylaxis. 12/13/2023: Patient continued to have slight pain and discomfort around the surgical site along with left thigh area as well, able to ambulate with help still using a walker. Pain management doing well with hydrocodone along with Lyrica which is back on his home baseline medication. Patient is hemodynamically stable no complication no sign of urinary retention he was to go home today after doing physical therapy and he will be follow-up in the office as an outpatient next week. REVIEW OF SYSTEMS: CONSTITUTIONAL: Well-developed no acute respiratory distress. EYES: No icterus sclerae, no conjunctivitis. EARS, NOSE, MOUTH, THROAT, and FACE: No sore throat, lymphadenopathy, carotid bruits or deformity. RESPIRATORY: No SOB cough or wheezes. CARDIOVASCULAR: No CP, Palpitation, PND, Orthopnea, or angina. GASTROINTESTINAL: No Abd pain, Nausea or vomiting, no Diarrhea or constipation, No GI Bleed, no distention or masses. GENITOURINARY: Negative for Hematuria or UTI, no kidney stones. INTEGUMENT/BREAST: Negative for any muscular injury with mild osteoarthritis.. HEMATOLOGIC/LYMPHATIC: Negative for bleed or purpura. MUSCULOSKELTAL: Mild arthralgia and myalgia with lower back pain post right total hip arthroplasty. NEURLOGICAL: No LOC, Sz or syncope, blurred vision dizziness or abnormality.. BEHAVIORAL/PSYCH: Negative. ENDOCRINE: Negative. PHYSICAL EXAMINATION: General Appearance: Alert, cooperative, no distress, appears stated age. Neck HEENT: Supple, no lymphadenopathy, no thyroid enlargement, no carotid bruits. Lungs: Clear to auscultation without crackles or wheezes no rhonchi, no deformity. Chest Wall: Chest wall normal expansion with deep inspiration no tenderness and no deformity was found on exam, no costochondral pain or discomfort. Heart: Regular rate and rhythm, S1, S2 normal, no murmur, rub or gallop. Back: Symmetric, no curvature, ROM normal, no CVA tenderness. Abdomen: Soft, non-tender, bowel sounds active all four quadrants, no masses, no organomegaly. Extremities: No edema both legs are equal length, incision on the left side looks fine, no hematoma or bleeding, incision of the right side still have slight keloid only. No sign of dropping foot no lack of sensation. Pulses: 2+ and symmetric. Skin: Skin color, texture, tugor normal, no rashes or lesions. Neurologic: Alert oriented x3 cranial nerves II through XII intact, no motor deficit, no abnormal balance or gait. ASSESSMENT AND PLAN: _Post left total hip anterior approach arthroplasty: Did well through the night hemodynamically stable and pain is under better control at this point. _Avascular necrosis of both hips secondary to steroid injection with epidural post bilateral total hip arthroplasty. To avoid steroid injection to avoid any further avascular necrosis elsewhere in his body. _Chronic pain syndrome: Has been on hydrocodone and Lyrica. His hydrocodone might be titrated higher for going home I. _DVT prophylaxis: Was started on Xarelto 10 mg a day patient apparently was on Eliquis 2.5 mg twice a day at home and was continued for total of 4 weeks. _GI prophylaxis: Patient be on Pepcid 20 mg daily. Discharge planning: Patient be discharged home today after seeing Ortho and after doing physical therapy. Objective - Vital Signs Vital signs: Vital Signs Temp 98.0 F 12/13/23 00:33 Pulse 75 12/13/23 00:33 Resp 16 12/13/23 00:33 BP 130/78 12/13/23 00:33 Pulse Ox 99 12/13/23 00:33 FiO2 Intake & Output 12/12/23 12/12/23 12/13/23 06:59 18:59 06:59 Intake Total 2551 Output Total 300 Balance 2251 Weight 86.1 kg Intake: IV 2551 Output: Estimated Blood Loss 300 - Labs CBC & Chem 7: 12/13/23 04:39
== END 2023-12-13 13:34 | disposition home health service (06) ==
LOC: OR 05:41 → 4SSUR 14:35 → OR 12-13 13:34
PROVIDERS: ATTEND Orthopaedic Surgery
DX: M87.052 Idiopathic aseptic necrosis of left femur (principal); G89.18 Other acute postprocedural pain; M51.26 Other intervertebral disc displacement, lumbar region; G89.29 Other chronic pain; F17.290 Nicotine dependence, other tobacco product, uncomplicated; Z96.641 Presence of right artificial hip joint; Z79.01 Long term (current) use of anticoagulants; Z79.899 Other long term (current) drug therapy
CPT/HCPCS: 97161; 97166; 64447; 85025; 73501; 27130; C1776; J2250; J1100; J0690 ×3; J2405; J3010; J1170 ×2